=== PATIENT | female | born 1925 | race Caucasian/White ===

== ENCOUNTER 2017-04-06 10:28 | Emergency (ER) | payer OTHER, MEDICARE ==
[~2017-04-06] VITALS: Ht 149.9 cm; Wt 56.3 kg
[~2017-04-06 10:28] MED LIST: ANTIVERT12.5 MG PO; ARTIFICIAL TEAR15 M1 BOTH EYES; ASPIR-LOW81 MG PO; ASPIR-TRIN325 M1 PO; ATORVASTATIN CA80 MG PO; B-125000 MC1 SL; CEPHALEXIN250 MG PO; CLOPIDOGREL75 MG PO; COUMADIN1 MG PO; COUMADIN3 MG PO; DOCUSATE SODIU100 MG PO; IBUPROFEN200 M1 PO; LIPITOR80 MG PO; LO-DOSE ASPIRIN81 M1 PO; LOPRESSOR25 MG PO; MECLIZINE HCL12.5 M2 PO; NORVASC5 MG PO; PANTOPRAZOLE SO40 MG PO; PHENERGAN25 MG PR; PREDNISONE20 MG PO; PREDNISONE5 MG PO; PREDNISONE50 MG PO; PROTONIX40 MG PO; PROZAC20 MG PO; TUMS500 MG PO; TUSSIN CHE100 MG/5 M PO; TYLENOL EXTRA500 MG PO; TYLENOL WITH C1 EACH PO; Tums,OsCal PO; VITAMIN D31000 UNI2 PO; VITAMIN D31000 UNIT PO; ZANTAC150 MG PO
[2017-04-06 11:06] LABS: EOSINOPHIL (%) 0.1 % (0-5); HEMATOCRIT 37.7 % (36.0-46.0); IMMATURE GRANULOCYTE (%) 0.4 % (0.0-0.7); INSTRUMENT ABS NEUTROPHIL CT 7.8 K/uL; LYMPHOCYTE COUNT 0.7 K/uL (1.0-2.8); MCH 28.9 PG (29.0-34.0); MCHC 32.6 G/DL (30.0-36.0); MCV 88.5 FL (83-99); MEAN PLAT.VOLUME 9.6 uM^3 (9.5-12.4); MONOCYTE (%) 9.8 % (3-12); MONOCYTE COUNT 0.9 K/uL (0-0.8); NEUTROPHIL (%) 81.9 % (45-76); NEUTROPHIL COUNT 7.8 K/uL (1.8-6.4); PLATELET COUNT 263 K/uL (156-360); RBC DIS.WIDTH-CV 14.6 % (11.8-14.6); RBC DIS.WIDTH-SD 46.4 % (39-53); RED BLOOD COUNT 4.26 M/uL (3.80-5.20); WHITE BLOOD COUNT 9.6 K/uL (4.1-10.2)
[2017-04-06 11:16] LABS: CHLORIDE 102 mEq/L (99-109); POTASSIUM 3.9 mEq/L (3.7-5.4); SODIUM 134 mEq/L (136-147)
[2017-04-06 11:18] LABS: GLUCOSE 113 mg/dL (70-99)
[2017-04-06 11:19] LABS: ANION GAP 11 MEQ/L (2-14)
[2017-04-06 11:21] LABS: ALKALINE PHOSPHATASE 135 IU/L (3-129)
[2017-04-06 11:22] LABS: GFR ESTIMATE (CALCULATED) > 59 mL/min/
[2017-04-06 11:23] LABS: UREA NITROGEN (BUN) 16 mg/dL (9-23)
[2017-04-06 11:25] LABS: LIPASE 36 U/L (1.0-51.0)
[2017-04-06 13:18] LABS: ADD MIUA? YES; BILIRUBIN NEGATIVE; BLOOD SMALL; COLOR YELLOW ((YELLOW)); GLUCOSE (STRIP) NEGATIVE; KETONES NEGATIVE; LEUKOCYTES SMALL; NITRITE NEGATIVE; PROTEIN (STRIP) 30; SPECIFIC GRAVITY 1.035 (1.000-1.030)
[2017-04-06 13:25] LABS: BACTERIA RARE /HPF; EPITHELIAL CELLS RARE /HPF; MUCUS TRACE /LPF; RED BLOOD CELLS 0-5 /HPF (0-5)
[2017-04-06] MEDS ORDERED: CIPRO500 MG PO (14:31)
[2017-04-06] MEDS ORDERED: CITRATE OF MAG296 ML PO (14:31)
[2017-04-06 15:16] VITALS: BP 199/87
== END 2017-04-06 15:17 | disposition home or self-care (01) ==
LOC: EME 10:28
PROVIDERS: Emergency Medicine
DX: K59.00 Constipation, unspecified (principal); N39.0 Urinary tract infection, site not specified; K44.9 Diaphragmatic hernia without obstruction or gangrene; N28.1 Cyst of kidney, acquired; Z90.710 Acquired absence of both cervix and uterus; I10 Essential (primary) hypertension; E78.5 Hyperlipidemia, unspecified; Z79.01 Long term (current) use of anticoagulants; Z79.52 Long term (current) use of systemic steroids
CPT/HCPCS: 74022; 74177; 80053; 81003; 83690; 85025; 99281; 99285; J2270

== ENCOUNTER 2017-04-13 08:59 | Inpatient (IN) | payer OTHER, MEDICARE ==
[~2017-04-13] VITALS: Ht 149.9 cm; Wt 52.6 kg
[~2017-04-13 08:59] MED LIST changes: +CIPRO500 MG PO; +CITRATE OF MAG296 ML PO; +COUMADIN2 MG PO; -COUMADIN3 MG PO; +LIPITOR40 MG PO; -LIPITOR80 MG PO
[2017-04-13 10:19] LABS: EOSINOPHIL (%) 0.7 % (0-5); EOSINOPHIL COUNT 0.1 K/uL (0-0.3); HEMATOCRIT 37.1 % (36.0-46.0); IMMATURE GRANULOCYTE (%) 0.4 % (0.0-0.7); INSTRUMENT ABS NEUTROPHIL CT 6.4 K/uL; LYMPHOCYTE COUNT 0.9 K/uL (1.0-2.8); MCH 29.3 PG (29.0-34.0); MCHC 32.9 G/DL (30.0-36.0); MEAN PLAT.VOLUME 9.1 uM^3 (9.5-12.4); MONOCYTE (%) 10.9 % (3-12); MONOCYTE COUNT 0.9 K/uL (0-0.8); NEUTROPHIL (%) 76.5 % (45-76); NEUTROPHIL COUNT 6.4 K/uL (1.8-6.4); PLATELET COUNT 272 K/uL (156-360); RBC DIS.WIDTH-CV 14.7 % (11.8-14.6); RBC DIS.WIDTH-SD 47.5 % (39-53); RED BLOOD COUNT 4.17 M/uL (3.80-5.20); WHITE BLOOD COUNT 8.4 K/uL (4.1-10.2)
[2017-04-13 10:27] LABS: CHLORIDE 100 mEq/L (99-109); POTASSIUM 3.6 mEq/L (3.7-5.4); SODIUM 139 mEq/L (136-147)
[2017-04-13 10:29] LABS: GLUCOSE 95 mg/dL (70-99)
[2017-04-13 10:30] LABS: ANION GAP 11 MEQ/L (2-14)
[2017-04-13 10:33] LABS: GFR ESTIMATE (CALCULATED) > 59 mL/min/
[2017-04-13 10:34] LABS: UREA NITROGEN (BUN) 17 mg/dL (9-23)
[2017-04-13 10:39] LABS: TROP-I INTERPRETATION NEGATIVE; TROPONIN-I 0.04 ng/mL (0.0-0.30)
[2017-04-13 11:47] LABS: ADD MIUA? YES; BILIRUBIN NEGATIVE; BLOOD NEGATIVE; COLOR YELLOW ((YELLOW)); GLUCOSE (STRIP) NEGATIVE; KETONES 5; LEUKOCYTES SMALL; NITRITE NEGATIVE; PROTEIN (STRIP) 30; SPECIFIC GRAVITY 1.015 (1.000-1.030)
[2017-04-13 11:52] LABS: BACTERIA RARE /HPF; CALCIUM OXALATE CRYSTALS 1+ /HPF; EPITHELIAL CELLS RARE /HPF; HYALINE CASTS 0-5 /LPF; MUCUS 2+ /LPF; WHITE BLOOD CELLS 15-20 /HPF (0-5)
[2017-04-13] MEDS ORDERED: TOPROL XL25 MG PO (13:07)
[2017-04-13] MEDS ORDERED: PANTOPRAZOLE SO40 MG PO (13:08)
[2017-04-13] MEDS ORDERED: ACETAMINOPHEN325 M1 PO (13:14)
[2017-04-13] MEDS ORDERED: MAGNESIUM CITR296 M1 PO (13:15)
[2017-04-13] MEDS ORDERED: MIRALAX17 GM PO (13:15)
[2017-04-13 14:08] LABS: PROTHROMBIN TIME 66.4 SEC (10.2-12.9)
[2017-04-13 14:14] LABS: INTER. NORMALIZED RATIO 5.8
[2017-04-13 14:52] VITALS: BP 178/81
[2017-04-13 19:50] VITALS: BP 141/64
[2017-04-13 23:59] VITALS: BP 158/70
[2017-04-14 03:23] VITALS: BP 144/75
[2017-04-14 06:04] LABS: ANION GAP 10 MEQ/L (2-14); CHLORIDE 107 MEQ/L (99-109); GFR ESTIMATE (CALCULATED) > 59 mL/min/; GLUCOSE 68 mg/dL (70-99); POTASSIUM 3.9 MEQ/L (3.7-5.4); SAMPLE HEMOLYSIS CHECK 0; SAMPLE ICTERIC CHECK 0; SAMPLE LIPEMIA CHECK 0; SODIUM 140 MEQ/L (136-147); UREA NITROGEN (BUN) 10 mg/dL (9-23)
[2017-04-14 06:14] LABS: EOSINOPHIL (%) 1.3 % (0-5); EOSINOPHIL COUNT 0.1 K/uL (0-0.3); IMMATURE GRANULOCYTE (%) 0.4 % (0.0-0.7); INSTRUMENT ABS NEUTROPHIL CT 4.8 K/uL; LYMPHOCYTE COUNT 1.3 K/uL (1.0-2.8); MCH 29.2 PG (29.0-34.0); MCHC 31.9 G/DL (30.0-36.0); MCV 91.7 FL (83-99); MEAN PLAT.VOLUME 9.2 uM^3 (9.5-12.4); MONOCYTE (%) 10.4 % (3-12); MONOCYTE COUNT 0.7 K/uL (0-0.8); NEUTROPHIL (%) 69.3 % (45-76); NEUTROPHIL COUNT 4.8 K/uL (1.8-6.4); PLATELET COUNT 222 K/uL (156-360); RBC DIS.WIDTH-CV 14.8 % (11.8-14.6); RBC DIS.WIDTH-SD 49.9 % (39-53); RED BLOOD COUNT 3.49 M/uL (3.80-5.20); WHITE BLOOD COUNT 6.9 K/uL (4.1-10.2)
[2017-04-14 08:30] VITALS: BP 167/70
[2017-04-14 12:46] VITALS: BP 178/74
[2017-04-14 14:56] LABS: C-REACTIVE PROTEIN 24.8 MG/L (0-10)
[2017-04-14 15:10] LABS: LIPASE 51 U/L (1.0-51.0)
[2017-04-14 15:41] LABS: INTER. NORMALIZED RATIO 1.2; PROTHROMBIN TIME 14.2 SEC (10.2-12.9)
[2017-04-14 16:36] VITALS: BP 147/65
[2017-04-14 23:35] VITALS: BP 178/80
[2017-04-15 00:20] VITALS: BP 150/70
[2017-04-15 03:28] VITALS: BP 160/70
[2017-04-15 07:36] VITALS: BP 183/78
[2017-04-15 13:13] VITALS: BP 160/77
[2017-04-15 14:31] LABS: DIRECT BILIRUBIN 0.2 mg/dL (0.0-0.3); TOTAL BILIRUBIN 0.6 MG/DL (0.0-1.0)
[2017-04-15 14:46] LABS: ALKALINE PHOSPHATASE 113 IU/L (3-129); LIPASE 75 U/L (1.0-51.0)
[2017-04-15 16:30] VITALS: BP 185/86
[2017-04-15 19:39] LABS: INTER. NORMALIZED RATIO 1.1; PROTHROMBIN TIME 12.6 SEC (10.2-12.9)
[2017-04-16] VITALS (7 sets, daily range): BP systolic 117–193; BP diastolic 56–94
[2017-04-16 05:35] LABS: HEMATOCRIT 36.5 % (36.0-46.0); MCH 29.7 PG (29.0-34.0); MCHC 33.2 G/DL (30.0-36.0); MCV 89.5 FL (83-99); MEAN PLAT.VOLUME 9.5 uM^3 (9.5-12.4); PLATELET COUNT 266 K/uL (156-360); RBC DIS.WIDTH-CV 14.5 % (11.8-14.6); RBC DIS.WIDTH-SD 46.8 % (39-53); RED BLOOD COUNT 4.08 M/uL (3.80-5.20); WHITE BLOOD COUNT 9.5 K/uL (4.1-10.2)
[2017-04-16 05:36] LABS: INTER. NORMALIZED RATIO 1.1; PROTHROMBIN TIME 12.7 SEC (10.2-12.9)
[2017-04-16 06:03] LABS: ANION GAP 13 MEQ/L (2-14); CHLORIDE 103 MEQ/L (99-109); GFR ESTIMATE (CALCULATED) > 59 mL/min/; GLUCOSE 75 mg/dL (70-99); POTASSIUM 3.3 MEQ/L (3.7-5.4); SAMPLE HEMOLYSIS CHECK 0; SAMPLE ICTERIC CHECK 0; SAMPLE LIPEMIA CHECK 0; SODIUM 138 MEQ/L (136-147); UREA NITROGEN (BUN) 5 mg/dL (9-23)
[2017-04-17 03:52] VITALS: BP 120/61
[2017-04-17 05:26] LABS: INTER. NORMALIZED RATIO 1.1; PROTHROMBIN TIME 12.9 SEC (10.2-12.9)
[2017-04-17 11:04] LABS: ANION GAP 12 MEQ/L (2-14); CHLORIDE 109 MEQ/L (99-109); GFR ESTIMATE (CALCULATED) > 59 mL/min/; GLUCOSE 70 mg/dL (70-99); POTASSIUM 3.5 MEQ/L (3.7-5.4); SAMPLE HEMOLYSIS CHECK 0; SAMPLE ICTERIC CHECK 0; SAMPLE LIPEMIA CHECK 0; SODIUM 140 MEQ/L (136-147); UREA NITROGEN (BUN) 7 mg/dL (9-23)
[2017-04-17 11:39] VITALS: BP 128/58
[2017-04-17 15:43] VITALS: BP 123/60
[2017-04-18 00:11] VITALS: BP 131/62
[2017-04-18 03:50] VITALS: BP 143/65
[2017-04-18 05:35] LABS: EOSINOPHIL (%) 1.9 % (0-5); EOSINOPHIL COUNT 0.1 K/uL (0-0.3); HEMATOCRIT 32.8 % (36.0-46.0); IMMATURE GRANULOCYTE (%) 0.4 % (0.0-0.7); INSTRUMENT ABS NEUTROPHIL CT 4.9 K/uL; LYMPHOCYTE COUNT 1.1 K/uL (1.0-2.8); MCHC 31.4 G/DL (30.0-36.0); MCV 92.4 FL (83-99); MEAN PLAT.VOLUME 9.9 uM^3 (9.5-12.4); MONOCYTE COUNT 0.7 K/uL (0-0.8); NEUTROPHIL (%) 71.3 % (45-76); NEUTROPHIL COUNT 4.9 K/uL (1.8-6.4); PLATELET COUNT 223 K/uL (156-360); RBC DIS.WIDTH-CV 14.6 % (11.8-14.6); RBC DIS.WIDTH-SD 49.9 % (39-53); RED BLOOD COUNT 3.55 M/uL (3.80-5.20); WHITE BLOOD COUNT 6.8 K/uL (4.1-10.2)
[2017-04-18 06:38] LABS: ANION GAP 10 MEQ/L (2-14); CHLORIDE 111 MEQ/L (99-109); GFR ESTIMATE (CALCULATED) > 59 mL/min/; GLUCOSE 49 mg/dL (70-99); POTASSIUM 3.9 MEQ/L (3.7-5.4); SAMPLE HEMOLYSIS CHECK 0; SAMPLE ICTERIC CHECK 0; SAMPLE LIPEMIA CHECK 0; SODIUM 142 MEQ/L (136-147); UREA NITROGEN (BUN) 9 mg/dL (9-23)
[2017-04-18 08:35] VITALS: BP 179/76
[2017-04-18 11:13] VITALS: BP 183/78
[2017-04-18 20:00] VITALS: BP 184/86
[2017-04-19] VITALS (7 sets, daily range): BP systolic 119–187; BP diastolic 51–78
[2017-04-19 05:46] LABS: EOSINOPHIL COUNT 0.1 K/uL (0-0.3); HEMATOCRIT 33.2 % (36.0-46.0); IMMATURE GRANULOCYTE (%) 0.7 % (0.0-0.7); IMMATURE GRANULOCYTE COUNT 0.1 K/uL; INSTRUMENT ABS NEUTROPHIL CT 5.4 K/uL; LYMPHOCYTE COUNT 0.9 K/uL (1.0-2.8); MCHC 32.2 G/DL (30.0-36.0); MEAN PLAT.VOLUME 9.6 uM^3 (9.5-12.4); MONOCYTE (%) 11.1 % (3-12); MONOCYTE COUNT 0.8 K/uL (0-0.8); NEUTROPHIL (%) 74.7 % (45-76); NEUTROPHIL COUNT 5.4 K/uL (1.8-6.4); PLATELET COUNT 241 K/uL (156-360); RBC DIS.WIDTH-CV 14.6 % (11.8-14.6); RBC DIS.WIDTH-SD 47.3 % (39-53); RED BLOOD COUNT 3.69 M/uL (3.80-5.20); WHITE BLOOD COUNT 7.2 K/uL (4.1-10.2)
[2017-04-19 06:08] LABS: ANION GAP 14 MEQ/L (2-14); CHLORIDE 105 MEQ/L (99-109); GFR ESTIMATE (CALCULATED) > 59 mL/min/; GLUCOSE 68 mg/dL (70-99); POTASSIUM 3.2 MEQ/L (3.7-5.4); SAMPLE HEMOLYSIS CHECK 0; SAMPLE ICTERIC CHECK 0; SAMPLE LIPEMIA CHECK 0; SODIUM 138 MEQ/L (136-147); UREA NITROGEN (BUN) 5 mg/dL (9-23)
[2017-04-19 10:17] LABS: PROTHROMBIN TIME 22.5 SEC (10.2-12.9)
[2017-04-20 05:50] LABS: EOSINOPHIL (%) 0.9 % (0-5); EOSINOPHIL COUNT 0.1 K/uL (0-0.3); HEMATOCRIT 33.6 % (36.0-46.0); IMMATURE GRANULOCYTE (%) 0.4 % (0.0-0.7); INSTRUMENT ABS NEUTROPHIL CT 5.7 K/uL; LYMPHOCYTE COUNT 0.9 K/uL (1.0-2.8); MCH 30.3 PG (29.0-34.0); MCHC 33.9 G/DL (30.0-36.0); MCV 89.4 FL (83-99); MEAN PLAT.VOLUME 9.8 uM^3 (9.5-12.4); MONOCYTE (%) 10.8 % (3-12); MONOCYTE COUNT 0.8 K/uL (0-0.8); NEUTROPHIL (%) 75.8 % (45-76); NEUTROPHIL COUNT 5.7 K/uL (1.8-6.4); PLATELET COUNT 254 K/uL (156-360); RBC DIS.WIDTH-SD 48.6 % (39-53); RED BLOOD COUNT 3.76 M/uL (3.80-5.20); WHITE BLOOD COUNT 7.5 K/uL (4.1-10.2)
[2017-04-20 06:14] LABS: INTER. NORMALIZED RATIO 2.2; PROTHROMBIN TIME 25.5 SEC (10.2-12.9)
[2017-04-20 06:55] LABS: ANION GAP 13 MEQ/L (2-14); CHLORIDE 103 MEQ/L (99-109); GFR ESTIMATE (CALCULATED) > 59 mL/min/; GLUCOSE 71 mg/dL (70-99); POTASSIUM 3.8 MEQ/L (3.7-5.4); SAMPLE HEMOLYSIS CHECK 0; SAMPLE ICTERIC CHECK 0; SAMPLE LIPEMIA CHECK 0; SODIUM 137 MEQ/L (136-147); UREA NITROGEN (BUN) 5 mg/dL (9-23)
[2017-04-20 08:06] VITALS: BP 171/73
[2017-04-20 11:29] VITALS: BP 152/67
[2017-04-20 15:32] VITALS: BP 177/72
[2017-04-20 20:00] VITALS: BP 158/75
[2017-04-20 23:23] VITALS: BP 177/74
[2017-04-21 03:50] VITALS: BP 182/77
[2017-04-21 05:06] VITALS: BP 154/81
[2017-04-21 05:40] LABS: INTER. NORMALIZED RATIO 2.3; PROTHROMBIN TIME 26.4 SEC (10.2-12.9)
[2017-04-21 08:42] VITALS: BP 122/61
[2017-04-21 11:35] VITALS: BP 140/63
[2017-04-21] MEDS ORDERED: AMLODIPINE BESY10 MG PO (12:51)
[2017-04-21] MEDS ORDERED: TOPROL XL25 MG PO (12:52)
[2017-04-21] MEDS ORDERED: CLONIDINE HCL0.1 MG PO (12:52)
[2017-04-21] MEDS ORDERED: DOCUSATE SODIU100 MG PO (12:53)
[2017-04-21] MEDS ORDERED: TORADOL10 MG PO (12:54)
[2017-04-21] MEDS ORDERED: VIVA PATCH1 EACH TP (12:55)
[2017-04-21] MEDS ORDERED: OXYCODONE HCL5 MG PO (12:58)
== END 2017-04-21 16:02 | DRG 393 ==
LOC: EME 08:59 → EDOF 12:52 → 5WEST 12:52 → ENRESERV 12:57 → EDOF 13:14 → 5WEST 14:34 → CANRESERV 04-14 14:23 → ENRESERV 04-14 14:23 → 5WEST 04-21 16:02
PROVIDERS: Emergency Medicine; Family Medicine; Hospitalist; Internal Medicine; Nurse Practitioner Adult Health; Nurse Practitioner Family
DX: K63.89 Other specified diseases of intestine (principal); Q43.8 Other specified congenital malformations of intestine; G93.41 Metabolic encephalopathy; E87.6 Hypokalemia; M81.0 Age-related osteoporosis without current pathological fracture; E78.5 Hyperlipidemia, unspecified; K21.9 Gastro-esophageal reflux disease without esophagitis; E86.0 Dehydration; I10 Essential (primary) hypertension; F39 Unspecified mood [affective] disorder; H54.3 Unqualified visual loss, both eyes; I25.2 Old myocardial infarction; I25.10 Atherosclerotic heart disease of native coronary artery without angina pectoris; I77.4 Celiac artery compression syndrome; J98.11 Atelectasis; K59.00 Constipation, unspecified; Z79.01 Long term (current) use of anticoagulants; Z86.711 Personal history of pulmonary embolism; Z86.73 Personal history of transient ischemic attack (TIA), and cerebral infarction without residual deficits; M31.6 Other giant cell arteritis
CPT/HCPCS: 71010; 74000; 74174; 74177; 76705; 80048; 80076; 81003; 82948; 83605; 83690; 84484; 85025; 85027; 85610; 86140; 87040; 87086; 94799; 99281; 99285; G0378; J0696; J1650; J1885; J3010; J7030; J7050; J7512